=== PATIENT | male | born 1970 | race Hispanic/Latino ===

== ENCOUNTER 2023-03-28 01:38 | Emergency (ER) | payer SELFPAY ==
[2023-03-28 01:39] VITALS: BP 143/98; PULSE 62; RESP 15; TEMP 36.6; O2SAT 97
--- NOTE | 2023-03-28 02:56 | EDS_ITS ---
HPI History of Present Illness Chief Complaint: Allergic Reaction Narrative Narrative: 52-year-old male presenting with upper lip swelling. The started about 10 PM. Patient reports that he drank an Ensure and believes he had milk in it which he is allergic to. He also admits to being allergic to Welsh cockroaches, eggs, mayonnaise, seafood, bees, honey, rice. The only thing he is going contact to is an Ensure which contains dairy. The only symptom he has is lip swelling on the upper lip. He does not take any medications on a chronic basis. He does not have any trouble swallowing or breathing. Does not have any shortness of breath. Does not have abdominal pain. He does not have any rashes. Apparently he attempted to give himself an EpiPen however it did not work, he believes he used it wrong. PFSH PFSH Home Medications epinephrine 0.3 mg/0.3 mL injection, auto-injector (EpiPen 2-Pal) 0.3 mg (0.3 mL) IM Q10M PRN PRN anaphylaxis #2 ea 03/28/23 [Rx Last Taken Unknown] Allergy/AdvReac Type Severity Reaction Status Date / Time shellfish derived Allergy Intermediate Anaphylaxis Verified 03/28/23 03:06 Egg Derived Allergy Unknown NEEDS Verified 03/28/23 03:06 FOLLOW-UP honey Allergy Unknown NEEDS Verified 03/28/23 03:06 FOLLOW-UP milk Allergy Unknown NEEDS Verified 03/28/23 03:06 FOLLOW-UP haitian roaches Allergy Unknown NEEDS Uncoded 03/28/23 03:06 FOLLOW-UP Social History Smoking Status: Never smoker ROS ROS ED Constitutional Constitutional ED: Denies chills, fever(s) or sweats Eyes Eyes: Denies blurry vision or change in vision ENT ENT ED: Reports other Details: Upper lip swelling ; Denies ear pain or sore throat Cardiovascular Cardiovascular: Denies chest pain, palpitations or racing heartbeat Respiratory/Chest Respiratory/Chest: Denies cough, dyspnea or sputum Gastrointestinal Gastrointestinal: Denies abdominal pain, constipation, diarrhea, nausea or vomiting Genitourinary Genitourinary ED: Denies dysuria, hematuria or urinary frequency Musculoskeletal Musculoskeletal: Denies arthralgias, myalgias or neck pain Integumentary Denies abscess, Abrasions or rash Neurologic Neurologic: Denies headache(s), paresthesias or weakness Psychiatric Psychiatric: Denies anxiety, depression, suicidal ideation or suicidal thoughts Endocrine Endocrinology: Denies polydipsia or polyuria EXAM Physical Exam Const Vital Signs: 03/28/23 01:39 03/28/23 03:46 Temperature 97.9 F Temperature Source Temporal Pulse Rate 62 63 Respiratory Rate 15 15 Blood Pressure 143/98 H Blood Pressure Mean 113 Pulse Ox 97 98 Oxygen Delivery Method Room Air Room Air Positive well nourished General Appearance ED: NAD; Negative for pallor HEENT Reports moist mucous membranes HEENT Narrative: Upper lip swelling mostly on the left. normocephalic Mouth ED: Yes oral and palatal mucosa normal, Yes tongue normal, Yes salivary gland normal and Yes moist mucous membranes normal Mouth: oral and palatal mucosa normal, tongue normal and salivary gland normal Throat: posterior oropharynx normal and tonsils normal; Negative for hoarseness Resp normal respiratory effort Effort and Inspection: Negative for retractions Cardio regular rate and regular rhythm Neuro oriented x3 and CN's II-XII intact bilaterally Skin no rashes or lesions noted General Skin Exam: Negative for jaundice or pallor MDM MDM MDM Narrative Medical decision making narrative: Patient has a localized allergic reaction to the upper lip. He believes this is from drinking milk last night at 10 PM. He has no other symptoms. He attempted use an EpiPen which did not work. He does not have evidence of anaphylaxis. I will give him Pepcid, Benadryl, Solu-Medrol and watch him for a while. Reevaluation at 3:49 AM patient is doing well. I wrote him a prescription for an EpiPen. He is counseled to discontinue drinking ensures that contains dairy. He did not have any improvement with previous treatment. At this point since his lip is involved I will give him EpiPen. Patient reevaluated at 530 and his lip is gone down tremendously. He feels a lot better. I will give him an EpiPen prescription. He is counseled to avoid milk products and all of the things he is allergic to. Impression: 1. Allergic reaction Discharge Plan Triage Chief Complaint: Allergic Reaction ED Provider: [place] Todd Dx/Rx/DC Orders Instructions: ED General Allergic Reactions Prescriptions: New epinephrine [EpiPen 2-Pal] 0.3 mg/0.3 mL auto-injector 0.3 mg IM Q10M PRN PRN (Reason: anaphylaxis) Qty: 2 0RF Rx Instructions: for 2 doses Primary Care Provider: Care Physician,No Primary Referrals: [facility] [Outside] - 3-5 Days Care Physician,No Primary [Primary Care Provider] - Print Language: Telugu Disposition Disposition: Home, Self Care
[2023-03-28] MEDS: DiphenhydrAMINE 50 MG/ML Syringe IV (03:02)
[2023-03-28] MEDS: MethylPREDNISolone 125 MG/2 ML Vial IV (03:02)
--- NOTE | 2023-03-28 03:06 | ED.RN ---
Pt to ED with swollen upper lip, allergic reaction. Pt with epi pen & attempted to administer earlier. Language barrier, medical interpreter Ipad used with MD. When asked patient what he has epi pen for, he responded 'multiple things.' Asked patient to specify in which he listed seafood, milk, eggs, honey from bees, pitcair[place] islander roaches but pt unable to explain allergy further in detail. Pt not able to explain history or symptoms well. Pt told property insurance agent that he drank milk the past two days but denied any contact with above allergens. When questioned, family stated that he had been drinking ensure the past two days.
[2023-03-28] MEDS: Famotidine 200 MG/20 ML MDV 20 MG in 0.9% Normal Saline (Pres. free 8 ML 300 MG IV (03:10)
[2023-03-28 03:46] VITALS: PULSE 63; RESP 15; O2SAT 98
[2023-03-28] MEDS: Epi Pen (EQUIV) 0.3 MG Syringe IM (04:19)
[2023-03-28 05:30] VITALS: BP 139/94; PULSE 72; RESP 11; O2SAT 98
--- NOTE | 2023-03-28 05:46 | ED.RN ---
Script wrote for epi pen. Per pharmacy, self pay hernandez [phone]. Updated patient and family but they didn't have that amount of money on them. They will pick on Wednesday at the retail pharmacy. Intepretor used for dc instructions
--- NOTE | 2023-03-28 05:49 | ED.RN ---
Pt came back to ED and stateed he had the money for medication. Sent to pharmacy.
== END 2023-03-28 05:49 | disposition home or self-care (01) ==
PROVIDERS: Emergency Provider Student in an Organized Health Care Education/Training Program; Visit Provider Student in an Organized Health Care Education/Training Program
DX: T78.40XA Allergy, unspecified, initial encounter (principal); X58.XXXA Exposure to other specified factors, initial encounter
CPT/HCPCS: 96374; 96375; 99283; A4216; J3490

== ENCOUNTER 2024-07-21 10:20 | Emergency (ER) | payer OTHER, SELFPAY ==
[2024-07-21 10:26] VITALS: BP 149/120; PULSE 86; RESP 16; TEMP 36.6; O2SAT 97
[2024-07-21 10:32] VITALS: BMI 28.5
--- NOTE | 2024-07-21 10:47 | ED.RN ---
PT IS SCOTTISH SPEAKING WITH SOME ROMANIAN. PTS UPPER LIP IS SWOLLEN AND SOME ITCHING. PT UNSURE IF HE ATE A FOOD WITH HIS ALLERGEN, BUT HAS BEEN INTUBATED FROM AN ALLERGIC REACTION IN THE PAST PER TRIAGE INFORMATION. DR LOZANO AT BEDSIDE AND PTS AIRWAY IS STABLE
--- NOTE | 2024-07-21 10:51 | EX.ED.DYSGE1 ---
HPI History of Present Illness Chief Complaint: Allergic Reaction Informant: patient Narrative Narrative: 54-year-old male presenting with upper lip swelling for about the past 4 hours spontaneously this morning. It is not painful or itchy. He denies any tongue, throat, hand/leg involvement. No chest discomfort or dyspnea/wheezing. No syncope or presyncope or other systemic symptoms. He states this has happened before and progressed to his throat and he had to be intubated so he has an EpiPen but it is so he has not taken or used anything prior to coming here today. He does not take any daily medications and has had no recent pills for any reason. [facility] Home Medications ?Medication ?Instructions ?Recorded ?Last Taken ?Type epinephrine 0.3 mg/0.3 mL 0.3 mg (0.3 mL) IM Q10M PRN PRN 03/28/23 Unknown Rx injection, auto-injector (EpiPen anaphylaxis #2 ea 2-Pal) prednisone 20 mg tablet 40 mg (2 x 20 mg) PO DAILY 5 days 07/21/24 Unknown Rx #10 tabs Allergy/AdvReac Type Severity Reaction Status Date / Time shellfish derived Allergy Intermediate Anaphylaxis Verified 07/21/24 12:33 Egg Derived Allergy Unknown NEEDS Verified 07/21/24 12:33 FOLLOW-UP honey Allergy Unknown NEEDS Verified 07/21/24 12:33 FOLLOW-UP milk Allergy Unknown NEEDS Verified 07/21/24 12:33 FOLLOW-UP icelandic roaches Allergy Unknown NEEDS Uncoded 03/28/23 03:06 FOLLOW-UP Social History Smoking Status: Never smoker ROS ROS ED Constitutional Constitutional ED: Denies chills or fever(s) Eyes Eyes: Denies change in vision or diplopia ENT ENT ED: Reports lip swelling; Denies rhinorrhea, sore throat, throat swelling or tongue swelling Cardiovascular Cardiovascular: Denies chest pain, palpitations or syncope Respiratory/Chest Respiratory/Chest: Denies cough or dyspnea Gastrointestinal Gastrointestinal: Denies abdominal pain, diarrhea, nausea or vomiting Genitourinary Genitourinary ED: Denies dysuria or hematuria Musculoskeletal Musculoskeletal: Denies back pain or neck pain Integumentary Denies abscess or rash Neurologic Neurologic: Denies headache(s), paresthesias or weakness Psychiatric Psychiatric: Denies anxiety or suicidal thoughts EXAM Physical Exam Const Vital Signs: 07/21/24 10:26 07/21/24 12:25 07/21/24 12:30 Temperature 97.8 F Temperature Source Oral Pulse Rate 86 74 Respiratory Rate 16 16 Blood Pressure 149/120 H 155/109 H 160/105 H Blood Pressure Mean 129 124 123 Pulse Ox 97 97 Oxygen Delivery Method Room Air Room Air 07/21/24 14:00 07/21/24 14:00 07/21/24 15:07 Temperature 98.8 F Temperature Source Pulse Rate 66 70 78 Respiratory Rate 15 14 23 H Blood Pressure 159/114 H 159/114 H 155/99 H Blood Pressure Mean 129 129 117 Pulse Ox 97 96 100 Oxygen Delivery Method Room Air Room Air Positive well nourished and well developed General Appearance ED: well developed and NAD HEENT Reports moist mucous membranes HEENT Narrative: Entire upper lip is mildly edematous and nontender. No focal lesions. Intraoral exam is normal with no lesions or petechiae, there is no stridor or dysphonia, tongue is normal no elevation or edema. normocephalic and atraumatic Eyes PERRL and EOMs intact bilaterally Neck full ROM and supple Resp normal respiratory effort and clear to auscultation bilaterally Cardio regular rate, regular rhythm and no murmurs Rate: Negative for tachycardic GI non-tender and non-distended Auscultation: normoactive bowel sounds Palpation: soft Back/Spine no CVA tenderness General Back: other FROM Extremity normal to inspection General Extremety ED: Negative for edema, pulses abnormal or tenderness General Extremity: Negative for edema or pulses abnormal Neuro oriented x3, CN's II-XII intact bilaterally and no sensory deficits noted Sensorium / Orientation: awake and alert Motor Exam: strength 5/5 throughout Skin no rashes or lesions noted and no wounds MDM MDM MDM Narrative Medical decision making narrative: Patient's vital signs are normal and he looks well at this time, does not need to be intubated at this time but we will clearly watch him closely because of his prior history, he was observed after we gave him IM epinephrine as well as IV Benadryl and Pepcid. Later, Solu-Medrol. He was observed for almost 5 hours. He had no worsening, he thinks maybe is a little improved, and is comfortable going home. We discussed reasons to return he is comfortable with that plan. He has epinephrine injections that are not , will prescribe him some prednisone. Critical Care Time Critical Care Time: Yes Critical care time (excluding procedures): 30-74 minutes (33 min), Including time spent:, Discussing w/Patient &/or Family/Cost Accounting Clerk and Performing Direct Patient Care at Bedside Discharge Plan Triage Chief Complaint: Allergic Reaction ED Provider: Joe Alvarez Dx/Rx/DC Orders Clinical Impression: Angioedema of lips Instructions: ED Angioedema Prescriptions: New prednisone 20 mg tablet 40 mg PO DAILY 5 Days Qty: 10 0RF No Action epinephrine [EpiPen 2-Pal] 0.3 mg/0.3 mL auto-injector 0.3 mg IM Q10M PRN PRN (Reason: anaphylaxis) Qty: 2 0RF Rx Instructions: for 2 doses Primary Care Provider: Vinny Antoine Referrals: Vinny Antoine MD [Primary Care Provider] - 1-2 Days if not improving Activity Restrictions/Additional Instructions: Empieza prednisone manana. Print Language: Korean Disposition Disposition: Home, Self Care
[2024-07-21] MEDS: DiphenhydrAMINE 50 MG/ML Syringe 25 MG IV (10:55)
[2024-07-21] MEDS: Epi Pen (EQUIV) 0.3 MG Syringe IM (10:56)
[2024-07-21] MEDS: Famotidine 200 MG/20 ML MDV 20 MG in 0.9% Normal Saline (Pres. free 8 ML 300 MG IV (11:59)
[2024-07-21 12:25] VITALS: BP 155/109; PULSE 74; RESP 16; O2SAT 97
[2024-07-21 12:30] VITALS: BP 160/105
[2024-07-21 14:00] VITALS: BP 159/114; PULSE 66; PULSE 70; RESP 14; RESP 15; O2SAT 96; O2SAT 97
[2024-07-21 15:07] VITALS: BP 155/99; PULSE 78; RESP 23; TEMP 37.1; O2SAT 100
[2024-07-21] MEDS: MethylPREDNISolone 125 MG/2 ML Vial IV (15:10)
== END 2024-07-21 15:28 | disposition home or self-care (01) ==
PROVIDERS: Emergency Provider Emergency Medicine; PCP Family Medicine; Visit Provider Emergency Medicine
DX: T78.3XXA Angioneurotic edema, initial encounter (principal); X58.XXXA Exposure to other specified factors, initial encounter
CPT/HCPCS: 96372; 96374; 96375; 96376; 99284; A4216